=== PATIENT | male | born 1995 | race Two or more races ===

== ENCOUNTER 2016-12-15 22:28 | Emergency (ER) | payer SELFPAY ==
[2016-12-15 22:31] VITALS: BP 129/56
[2016-12-15] MEDS ORDERED: EYE-STREAM OPHTH SOLUTION 120 ML BOTTLE. OD ONE (22:45)
[2016-12-15] MEDS ORDERED: FLUORESCEIN OPHTH TEST STRIP. OD ONE (22:45)
[2016-12-15] MEDS ORDERED: TETRACAINE 0.5% OPHTH SOLUTION 4ML BOTTLE. OD ONE (22:45)
--- NOTE | 2016-12-15 22:54 | PHYS DOC ---
Past Medical History Past Medical History: No Pertinent History Past Surgical History: No Surgical History Alcohol Use: None Drug Use: None Adult General Chief Complaint Chief Complaint: EYE PROBLEMS [facility] HPI Patient is a 21 year old male presents emergency department stating that he got something in his right eye on Thursday. 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 He states that he has a feeling of a foreign body in his right eye. He denies any blurred vision he denies any difficulty with his vision. He denies any use of contact lenses. Patient states his tetanus immunization is up-to-date. Denies any drainage or discharge. Patient is Nepali-speaking only he does have an bullion weigher at the bedside. Review of Systems Review of Systems Constitutional: Denies fever or chills [] Eyes: Denies change in visual acuity, C/o redness, and eye pain to the right[] HENT: Denies nasal congestion or sore throat [] Respiratory: Denies cough or shortness of breath [] Cardiovascular: No additional information not addressed in HPI [] GI: Denies abdominal pain, nausea, vomiting, bloody stools or diarrhea [] : Denies dysuria or hematuria [] Musculoskeletal: Denies back pain or joint pain [] Integument: Denies rash or skin lesions [] Neurologic: Denies headache, focal weakness or sensory changes [] Current Medications Current Medications Current Medications Medications (Trade) Dose Ordered Sig/Deborah Start Time Stop Time Status Last Admin Dose Admin Eye Irrigation Solution (Eye-Stream) 120 ml 1X ONCE 12/15/16 22:45 12/15/16 22:46 DC 12/15/16 22:45 120 ML Fluorescein Sodium (Ful-Otilia) 1 strip 1X ONCE 12/15/16 22:45 12/15/16 22:46 DC 12/15/16 22:45 1 STRIP Tetracaine HCl (Tetracaine) 1 drop 1X ONCE 12/15/16 22:45 12/15/16 22:46 DC 12/15/16 22:45 1 DROP Allergies Allergies Allergies Coded Allergies Type Severity Reaction Last Updated Verified No Known Drug Allergies 12/15/16 No Physical Exam Physical Exam Constitutional: Well developed, well nourished, no acute distress, non-toxic appearance. [] HENT: Normocephalic, atraumatic, bilateral external ears normal, oropharynx moist, no oral exudates, nose normal. [] Eyes: PERRLA, EOMI, conjunctiva normal, no discharge. [] Neck: Normal range of motion, no tenderness, supple, no stridor. [] Cardiovascular:Heart rate regular rhythm, no murmur [] Lungs & Thorax: Bilateral breath sounds clear to auscultation [] Skin: Warm, dry, no erythema, no rash. [] Back: No tenderness Extremities: No tenderness, no cyanosis, no clubbing, ROM intact, no edema. [] Neurologic: Alert and oriented X 3, normal motor function, normal sensory function, no focal deficits noted. [] Psychologic: Affect normal, judgement normal, mood normal. [] Current Patient Data Vital Signs Vital Signs Date Time Temp Pulse Resp B/P Pulse Ox O2 Delivery O2 Flow Rate FiO2 12/15/16 22:31 97.9 74 18 97 Room Air 97.9 EKG EKG [] Radiology/Procedures Radiology/Procedures [] Course & Med Decision Making Course & Med Decision Making Pertinent Labs and Imaging studies reviewed. (See chart for details) Tetracaine was placed into the right eye no foreign body noted. Fluorescein was placed into the right eye as well with no uptake noted. Eye was then irrigated with eye stream. Patient states he feels still feels as though there is a foreign body noted eye lid was inverted with no foreign body noted. Patient will be provided with polymyxin eyedrops. We'll refer him to ophthalmology tomorrow. Recommended Tylenol and ibuprofen for pain and discomfort. Patient will be discharged home in stable condition signs symptoms to return back to emergency department been provided. [] Dragon Disclaimer Dragon Disclaimer This electronic medical record was generated, in whole or in part, using a voice recognition dictation system. Departure Departure Impression: Primary Impression: Pain, eye, right Disposition: 01 HOME, SELF-CARE Condition: STABLE Referrals: NO PCP (PCP) NELLIE JOHNSTON MD Patient Instructions: Eye - Foreign Body, [id number] Additional Instructions: Activity tolerated. Medication as prescribed. Tylenol or ibuprofen for pain and discomfort. Follow-up with ophthalmology tomorrow. Return back to emergency prior signs symptoms of become worse. Scripts Polymyxin B Sulf/Trimethoprim (Polymyxin B-Tmp Eye Drops)10 Ml Drops1 Drop RIGHTEYE QID #10 ML Prov:TYRESE CLEVELAND APRN 12/15/16 TYRESE CLEVELAND APRN Dec 15, 2016 22:54
[2016-12-15] MEDS ORDERED: POLY10DR3 RIGHTEYE (23:05)
== END 2016-12-15 23:13 | disposition home or self-care (01) ==
LOC: ER 22:28
DX: H57.11 Ocular pain, right eye (principal)
CPT/HCPCS: 99283

== ENCOUNTER 2017-09-29 10:32 | Emergency (ER) | payer SELFPAY ==
[2017-09-29 12:06] LABS: INFLUENZA A PATIENT POSITIVE (NEGATIVE); INFLUENZA B PATIENT NEGATIVE (NEGATIVE); OBC FLU VALID
[2017-09-29] MEDS: ACETAMINOPHEN 500 MG TABLET PO (12:22)
[2017-09-29] MEDS: IBUPROFEN 800 MG TABLET. PO (12:22)
== END 2017-09-29 12:32 | disposition home or self-care (01) ==
LOC: ER 10:32
DX: J09.X2 Influenza due to identified novel influenza A virus with other respiratory manifestations (principal)
CPT/HCPCS: 87804; 87804-59; 99284